=== PATIENT | female | born 1975 | race Hispanic/Latino ===

== ENCOUNTER 2017-04-18 19:10 | Emergency (ER) | payer SELFPAY ==
[~2017-04-18] VITALS: Ht 149.9 cm; Wt 65.0 kg
[2017-04-18 20:00] VITALS: BP 133/79
== END 2017-04-18 20:00 | disposition home or self-care (01) | DRG 761 ==
LOC: ED 19:10
PROC: 0UCGXZZ Extirpation of Matter from Vagina, External Approach (ICD-10-PCS; principal; 2017-04-18)
DX: T19.2XXA Foreign body in vulva and vagina, initial encounter (principal); X58.XXXA Exposure to other specified factors, initial encounter

== ENCOUNTER 2017-04-23 17:13 | Emergency (ER) | payer SELFPAY ==
[~2017-04-23] VITALS: Ht 149.9 cm; Wt 65.8 kg
[2017-04-23 19:11] LABS: HEMATOCRIT 28.3 % (37.0-47.0); HEMOGLOBIN 9.3 g/dl (12.0-16.0); IMMATURE GRANULOCYTES 0.6 % (0.0-1.0); MEAN CELL VOLUME 94.6 fL CALC (80.0-100.0); MEAN CORPUSCULAR HGB 31.1 pG CALC (26.0-32.0); MEAN CORPUSCULAR HGB CONC 32.9 g/L CALC (32.0-36.0); NEUT# 5.13 thou/uL (2.00-7.15); RED BLOOD COUNT 2.99 mill/uL (4.20-5.60)
[2017-04-23 19:12] LABS: URINE BILIRUBIN - DIPSTICK NEGATIVE (NEGATIVE); URINE BLOOD DIPSTICK SMALL (NEGATIVE); URINE CLARITY SLIGHT CLOUDY; URINE COLOR YELLOW; URINE GLUCOSE - DIPSTICK NEGATIVE (NEGATIVE); URINE KETONE NEGATIVE (NEGATIVE); URINE LEUK ESTERASE NEGATIVE (NEGATIVE); URINE NITRITE - DIPSTICK NEGATIVE (Negative); URINE PROTEIN - DIPSTICK NEGATIVE (NEG-TRACE); URINE UROBILINOGEN - DIPSTICK 0.2 E.U./dL (0.2)
[2017-04-23 19:22] LABS: URINE AMORPH SEDIMENT MODERATE hpf (NONE-FEW); URINE BACTERIA FEW hpf; URINE MUCUS FEW hpf (NONE-FEW); URINE RBC 0-2 RBC/hpf (0-5); URINE SQUAMOUS EPITHELIAL CELL FEW EPI/hpf (0-FEW); URINE WBC 0-2 WBC/hpf (0-5)
[2017-04-23 19:27] LABS: ALBUMIN 4.2 g/dL (3.2-5.0); ALKALINE PHOSPHATASE 66 u/l (38-126); AMYLASE 48 u/l (30-110); ANION GAP 15 (6-22 (CALC)); BILIRUBIN, TOTAL 0.3 mg/dL (0.0-1.4); BUN 16 mg/dL (7-17); BUN/CREATININE RATIO 27 (12-20 (CALC)); CALCIUM 9.1 mg/dL (8.4-10.2); CARBON DIOXIDE 25 mmol/l (22-30); CHLORIDE 103 mmol/l (95-108); CREATININE 0.6 mg/dL (0.5-1.0); GFR > 60 ML/MIN (>=60 (CALC)); GFR FOR AFR.AMER. > 60 ML/MIN (>=60 (CALC)); GLUCOSE 88 mg/dL (65-105); LIPASE 83 u/l (23-300); SGOT/AST 25 u/l (14-36); SGPT/ALT 39 u/l (9-52); SODIUM 139 mmol/l (137-146); TOTAL PROTEIN 7.1 g/dL (6.3-8.2)
[2017-04-24 01:50] VITALS: BP 123/71
== END 2017-04-24 01:53 | disposition home or self-care (01) | DRG 392 ==
LOC: ED 17:13
PROVIDERS: Emergency Medicine
DX: R10.12 Left upper quadrant pain (principal); R10.32 Left lower quadrant pain; R19.04 Left lower quadrant abdominal swelling, mass and lump
CPT/HCPCS: Q9967

== ENCOUNTER 2017-05-05 07:08 | Day surgery (SDC) | payer SELFPAY ==
[~2017-05-05] VITALS: Ht 149.9 cm; Wt 63.5 kg
[2017-05-05 07:39] LABS: HEMATOCRIT 25.8 % (37.0-47.0); HEMOGLOBIN 8.3 g/dl (12.0-16.0); MEAN CELL VOLUME 92.5 fL CALC (80.0-100.0); MEAN CORPUSCULAR HGB 29.7 pG CALC (26.0-32.0); MEAN CORPUSCULAR HGB CONC 32.2 g/L CALC (32.0-36.0); RED BLOOD COUNT 2.79 mill/uL (4.20-5.60); RED CELL DISTRI WIDTH 13.7 % (11.5-15.5)
[2017-05-05] MEDS ORDERED: NORCO1 TA1 PO (09:37)
[2017-05-05] MEDS ORDERED: FERR SULFATE325 MG PO (09:37)
[2017-05-05 09:52] VITALS: BP 108/69
== END 2017-05-05 10:37 | disposition home or self-care (01) | DRG 744 ==
LOC: ORM 07:08
PROC: 0UDB7ZX Extraction of Endometrium, Via Natural or Artificial Opening, Diagnostic (ICD-10-PCS; principal; 2017-05-05)
DX: N93.8 Other specified abnormal uterine and vaginal bleeding (principal); D62 Acute posthemorrhagic anemia; D25.9 Leiomyoma of uterus, unspecified

== ENCOUNTER 2017-06-17 06:28 | Day surgery (SDC) | payer SELFPAY ==
[~2017-06-17] VITALS: Ht 152.4 cm; Wt 65.3 kg
[~2017-06-17 06:28] MED LIST: FERR SULFATE325 MG PO; NORCO1 TA1 PO
[2017-06-17] MEDS ORDERED: LORTAB 7.57.5 MG PO (09:17)
[2017-06-17 09:23] VITALS: BP 124/77
== END 2017-06-17 09:40 | disposition home or self-care (01) | DRG 743 ==
LOC: ORM 06:28
PROVIDERS: ATTEND Obstetrics & Gynecology
PROC: 0U5B7ZZ Destruction of Endometrium, Via Natural or Artificial Opening (ICD-10-PCS; principal; 2017-06-17)
PROC: 0UB97ZX Excision of Uterus, Via Natural or Artificial Opening, Diagnostic (ICD-10-PCS; 2017-06-17)
PROC: 0UDB7ZX Extraction of Endometrium, Via Natural or Artificial Opening, Diagnostic (ICD-10-PCS; 2017-06-17)
DX: N92.1 Excessive and frequent menstruation with irregular cycle (principal); D64.9 Anemia, unspecified; N84.0 Polyp of corpus uteri

== ENCOUNTER 2019-07-20 22:43 | Emergency (ER) | payer BC ==
[~2019-07-20] VITALS: Ht 152.4 cm; Wt 72.2 kg
[~2019-07-20 22:43] MED LIST changes: +LORTAB 7.57.5 MG PO
[2019-07-21] MEDS ORDERED: FIORICET PO (00:21)
[2019-07-21 00:56] VITALS: BP 132/71
== END 2019-07-21 00:56 | disposition home or self-care (01) | DRG 103 ==
LOC: ED 22:43
DX: G43.909 Migraine, unspecified, not intractable, without status migrainosus (principal)

== ENCOUNTER 2019-07-21 22:29 | Emergency (ER) | payer BC ==
[~2019-07-21] VITALS: Ht 152.4 cm; Wt 70.0 kg
[~2019-07-21 22:29] MED LIST changes: +FIORICET PO
[2019-07-21 23:59] VITALS: BP 140/93
== END 2019-07-21 23:59 | disposition home or self-care (01) | DRG 103 ==
LOC: ED 22:29
DX: G43.909 Migraine, unspecified, not intractable, without status migrainosus (principal)

== ENCOUNTER 2019-07-27 20:07 | Emergency (ER) | payer BC ==
[~2019-07-27] VITALS: Ht 152.4 cm; Wt 71.0 kg
[2019-07-27] MEDS ORDERED: ZOFRAN4 MG/TAB PO (20:40)
[2019-07-27] MEDS ORDERED: PERCOCET 5/325M1 TAB PO (20:42)
[2019-07-27 21:30] VITALS: BP 147/68
== END 2019-07-27 21:40 | disposition home or self-care (01) | DRG 103 ==
LOC: ED 20:07
DX: R51 Headache (principal)

== ENCOUNTER 2024-08-16 08:05 | Day surgery (SDC) | payer OTHER ==
[~2024-08-16] VITALS: Ht 152.4 cm; Wt 66.7 kg
[~2024-08-16 08:05] MED LIST changes: +MULTI VIT PO; +PERCOCET 5/325M1 TAB PO; +VITAMIN C + PO; +ZOFRAN4 MG/TAB PO
[2024-08-16] MEDS ORDERED: FAMOTIDINE 10MG/ML 2ML SDV IV ONE (08:10)
[2024-08-16] MEDS ORDERED: LACTATED RINGER'S 1,000 ML IV ONE (08:11)
[2024-08-16 11:03] VITALS: BP 172/96
[2024-08-16] MEDS ORDERED: PROPOFOL 200 MG/20 ML VIAL IV ONE (13:49)
[2024-08-16] MEDS ORDERED: LIDOCAINE HCL 2% 2ML SDV IV ONE (13:49)
[2024-08-16] MEDS ORDERED: GLYCOPYRROLATE 0.2 MG/ML IV ONE (13:49)
== END 2024-08-16 10:55 | disposition home or self-care (01) | DRG 951 ==
LOC: ENDO 08:05
PROVIDERS: ATTEND Surgery
PROC: 0DBL8ZX Excision of Transverse Colon, Via Natural or Artificial Opening Endoscopic, Diagnostic (ICD-10-PCS; principal; 2024-08-16)
DX: Z12.11 Encounter for screening for malignant neoplasm of colon (principal); D12.3 Benign neoplasm of transverse colon; K64.8 Other hemorrhoids; Z90.710 Acquired absence of both cervix and uterus